=== PATIENT | female | born 1995 | race Caucasian/White ===

== ENCOUNTER 2018-01-26 02:20 | Emergency (ER) | payer OTHER ==
[~2018-01-26] VITALS: Ht 180.3 cm; Wt 89.5 kg
[~2018-01-26 02:20] MED LIST: ZOFRAN4 MG PO
[2018-01-26 02:21] VITALS: BP 131/84
[2018-01-26 02:49] LABS: APPEARANCE CLOUDY ((CLEAR)); BILIRUBIN NEGATIVE; BLOOD SMALL; COLOR YELLOW ((YELLOW)); GLUCOSE (STRIP) NEGATIVE; KETONES 5; LEUKOCYTES TRACE; NITRITE NEGATIVE; PROTEIN (STRIP) 30; SPECIFIC GRAVITY 1.036 (1.000-1.030); UROBILINOGEN 0.2 MG/DL (0.2-1.0)
[2018-01-26 03:07] LABS: AMORPHOUS URATES CRYSTALS 1+; BACTERIA 1+ /HPF; EPITHELIAL CELLS 1+ /HPF; MUCUS NONE SEEN /LPF; UCUL ADDED? NO; WHITE BLOOD CELLS 0-5 /HPF (0-5)
== END 2018-01-26 02:50 | disposition left against medical advice (07) ==
LOC: EME 02:20
DX: R10.84 Generalized abdominal pain (principal); R68.83 Chills (without fever); Z53.21 Procedure and treatment not carried out due to patient leaving prior to being seen by health care provider
CPT/HCPCS: 80053; 81003; 84702; 85027